=== PATIENT | female | born 1935 | race Caucasian/White ===

== ENCOUNTER → 2017-12-04 | Day surgery (SDC) | payer MEDICARE, OTHER ==
[~2017-12-04] MED LIST: ALLO300T2 PO; ASPI1TAB69 PO; DOXA1TAB35 PO; FEXO15TA PO; IOHEXOL 180 MG/ML 20 ML VIAL (for RAD DIAG) EPIDURAL ONE; LIDOCAINE HCL 1% 30 ML VIAL NERV BLOCK ONE; LOSA100T PO; METO25TA3 PO; MOBI15TA PO; PROPOFOL 200 MG/20 ML AMP IV ONE; SODIUM CHLORIDE 0.9% 10 ML VIAL ONE; SYNT112T PO; TIMO0.2517 EACH EYE; methylPREDNISolone ACETATE 80 MG/ML VIAL ONE
--- NOTE | 2017-12-04 11:03 | M6 ---
cc: Belkys Cid MD DATE: 12/04/2017 PROCEDURE PERFORMED: Fluoroscopically guided L5-S1 interlaminar epidural steroid injection. History and physical was completed and signed. Consent was signed. Procedure site was marked. Medications were listed and reconciled. Pain score was recorded. Allergies were noted. Time out was taken. Fluoroscopy time was recorded where applicable. Sedation was administered or directed by Dr. Cid. The patient was given oxygen. The patient was monitored by a registered nurse. Total procedure time was greater than 15 minutes. DESCRIPTION: IV was started. Blood pressure cuff, pulse oximeter and EKG were applied. The patient was placed in the prone position on a Espinoza table, sedated with small amounts of Propofol titrated to effect. Vital signs were monitored and remained stable throughout the procedure. Lumbar area was prepped with alcohol and 10% Betadine solution and draped with sterile drapes. Fluoroscopy was used to visualize the L5-S1 interlaminar space. The skin was infiltrated with 1% Xylocaine, using a 27-gauge needle. Then, a 3-1/2 inch, 18-gauge Masterson needle was advanced using fluoroscopic guidance and the loss of resistance technique into the epidural space at L5-S1, slightly to the right of the midline. There was negative aspiration for blood or any other type of fluid. Omnipaque dye was injected and seen to spread in the right lateral recess in both a caudal and cephalad direction. The patient then was given 4 mL of 1% Xylocaine, 4 mL of Omnipaque and 80 mg of Depo-Medrol. Following the procedure, the patient was taken to the recovery room with stable vital signs, neurologically intact. Belkys Cid MD WRM/TL , 10:41 AM , 11:01 AM
--- NOTE | 2017-12-04 11:04 | M6 ---
cc: Belkys Cid MD DATE: 12/04/2017 DATE OF : 1935 PROCEDURE: Epidurogram. Fluoroscopy images were saved to the patient's chart. PROCEDURE NOTES: An epidurogram was done today on Ms. Mcgrath to determine if there was good flow of the injected medication into the epidural space, particularly on the right side. The patient's last MRI was 4 years ago in 2013. 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 The patient is having right lower extremity pain and I need to determine if the injected medication actually reaches the right lumbar nerve roots or if there is some obstruction to flow. The patient was sedated and 3-1/2-inch, 18-gauge Masterson needle was placed in the epidural space, slightly to the right of the midline at L5-S1. 8 mL of Omnipaque was injected and seen to spread both in the caudal direction and the cephalad direction in the right lateral recess. Dye was seen spreading all the way up to the L2 level. Therefore, in conclusion, I believe there is good flow of injected medication in the epidural space without obstruction. MD ALEXIS Miranda/PENNY , 10:45 AM , 11:03 AM
== END | disposition home or self-care (01) ==
LOC: PHSDC 08:04
PROVIDERS: ATTEND Pain Medicine Interventional Pain Medicine
DX: M54.5 Low back pain (principal); M79.604 Pain in right leg
CPT/HCPCS: 62323; 99152; J1040; Q9965